=== PATIENT | male | born 1990 | race Two or more races ===

== ENCOUNTER 2016-11-10 23:33 | Emergency (ER) | payer MEDICAID ==
[~2016-11-10] VITALS: Ht 177.8 cm; Wt 58.1 kg
[2016-11-10] MEDS ORDERED: NKM (23:43)
--- NOTE | 2016-11-11 00:29 | Emergency Room Report ---
History of Present Illness General Chief Complaint: General Complaint Source: Patient Present Illness HPI Is a 26-year-old male with no past medical history. He said he broke his ankle about 45 weeks ago was in [place]. He was put in a splint. He had followup with orthopedic who recommended continuing the splint. He took the splint off after 2-3 weeks. And walk on it. Now wants an x-ray to see how is healing. Denies any other complaint. Mild pain. Allergies: Coded Allergies: No Known Allergies (Unverified , 11/10/16) Patient History Past Medical History: see triage record, old chart reviewed Past Surgical History: none Pertinent Family History: none Social History: Denies: smoking Immunizations: other Reviewed Nursing Documentation: PMH: Agreed, PSxH: Agreed Nursing Documentation-PM Past Medical History: No Stated History Review of Systems Eye: Denies: blurred vision, eye pain ENT: Denies: ear pain, nose congestion, throat swelling Respiratory: Denies: cough, shortness of breath Cardiovascular: Denies: chest pain, palpitations Gastrointestinal: Denies: abdominal pain, diarrhea, nausea, vomiting Musculoskeletal: Reports: joint pain, Denies: back pain Skin: Denies: rash Neurological: Denies: headache, numbness Endocrine: Denies: increased thirst, increased urine Hematologic/Lymphatic: Denies: easy bruising All Other Systems: negative except mentioned in HPI Physical Exam Vital Signs Date Time Temp Pulse Resp B/P Pulse Ox O2 Delivery O2 Flow Rate FiO2 11/10/16 23:37 97.9 80 16 110/72 95 Room Air vitals normal Sp02 EP Interpretation: reviewed, normal General Appearance: well appearing, no apparent distress, alert Head: normocephalic, atraumatic Eyes: bilateral eye EOMI, bilateral eye PERRL ENT: hearing grossly normal, normal pharynx Neck: full range of motion, supple, no meningismus Respiratory: chest non-tender, lungs clear, normal breath sounds Cardiovascular #1: regular rate, rhythm, no murmur Gastrointestinal: normal bowel sounds, non tender, no mass, no organomegaly, no bruit, non-distended Musculoskeletal: back normal, other - Right ankle: Mild edema and tenderness over the lateral malleolus. Sensation normal. Dorsalis pedis pulse 2+. Neurologic: alert, oriented x3 Psychiatric: mood/affect normal Skin: warm/dry Medical Decision Making Diagnostic Impression: Primary Impression: Closed right fibular fracture Qualified Codes: S82.821A - Torus fracture of lower end of right fibula, initial encounter for closed fracture ER Course Patient presents with fibular fracture. He took off the splint her ready. His been weightbearing on it. I recommend that he has a splint but he does not want it. He does not want pain medication. Recommend followup with orthopedic Dr. We'll discharge home. Last Vital Signs Date Time Temp Pulse Resp B/P Pulse Ox O2 Delivery O2 Flow Rate FiO2 11/10/16 23:37 97.9 80 16 110/72 95 Room Air Status: improved Disposition: HOME, SELF-CARE Condition: Stable Additional Instructions: wearing your splint. Followup with orthopedic DrBarney in 2-3 days. Return if worse. ARTIE GARCIA M.D. Nov 11, 2016 00:29
[2016-11-11 00:32] VITALS: BP 110/72
--- NOTE | 2016-11-11 08:38 | Diagnostic Imaging Report ---
Indications: ,, Pain Technique: 3 views right ankle Findings: Comparison: None There is an oblique fracture through the distal fibular diaphysis and metaphysis, at and above the level of the ankle joint, minimally displaced. Minimal periosteal callus formation is demonstrated. Surrounding soft tissues are mildly swollen. Tibiotalar joint appears intact. No additional fracture, dislocation, joint space widening, medial soft tissue swelling or other acute change identified. IMPRESSION: Subacute fracture distal right fibula as described, minimal healing
== END 2016-11-11 00:33 | disposition home or self-care (01) ==
LOC: EMR 11-11 00:33
DX: S82.431A Displaced oblique fracture of shaft of right fibula, initial encounter for closed fracture (principal); X58.XXXA Exposure to other specified factors, initial encounter; Y92.89 Other specified places as the place of occurrence of the external cause
CPT/HCPCS: 99283

== ENCOUNTER 2018-01-25 04:04 | Emergency (ER) | payer MEDICAID ==
[~2018-01-25] VITALS: Ht 170.2 cm; Wt 61.2 kg
[~2018-01-25 04:04] MED LIST: NKM
[2018-01-25 04:20] VITALS: BP 117/71
--- NOTE | 2018-01-25 04:34 | Emergency Room Report ---
History of Present Illness General Chief Complaint: Skin Rash/Abscess Source: Patient Present Illness HPI Patient presents with a bump on his gluteal area that he noticed today. Several days ago he had fevers. The family member had MRSA and needed surgical treatment. He also complains about a possible nasal polyp on the left-hand side. The patient denies chest pain, shortness breath, cough, IV drug abuse, self injection with any other medication, immune compromise. The patient had a tetanus shot within the last year. Allergies: Coded Allergies: No Known Allergies (Unverified , 11/10/16) Patient History Past Medical History: see triage record Social History: Reports: smoking Social History Narrative with family Reviewed Nursing Documentation: PMH: Agreed; PSxH: Agreed Review of Systems All Other Systems: negative except mentioned in HPI Physical Exam Vital Signs Date Time Temp Pulse Resp B/P (MAP) Pulse Ox O2 Delivery O2 Flow Rate FiO2 01/25/18 04:14 97.9 78 16 117/71 96 Room Air 97.9 Sp02 EP Interpretation: reviewed, normal General Appearance: well appearing, no apparent distress Head: normocephalic, atraumatic Eyes: bilateral eye normal inspection, bilateral eye PERRL ENT: hearing grossly normal, normal voice, moist mucus membranes Neck: full range of motion, supple Respiratory: no respiratory distress, speaking full sentences Gastrointestinal: normal inspection Genitourinary: no CVA tenderness Musculoskeletal: no calf tenderness Neurologic: alert, normal gait Psychiatric: mood/affect normal Skin: normal color, warm/dry, other - nodule, induration R inner gluteal area, hirsuit Medical Decision Making Diagnostic Impression: Primary Impression: Cellulitis Qualified Codes: L03.317 - Cellulitis of buttock Additional Impression: Alleged nasal polyp ER Course Patient presents with painful nodule in the gluteal area. Differential includes cellulitis, abscess, folliculitis amongst others. This is removed from the rectum and is involving the skin only. There is no fluctuance and therefore oral antibiotics and topical antibiotics are indicated. Also patient will be treated for pain. No labs are indicated at this time. The patient is not toxic. The patient is stable for outpatient observation and treatment Last Vital Signs Date Time Temp Pulse Resp B/P (MAP) Pulse Ox O2 Delivery O2 Flow Rate FiO2 01/25/18 04:50 97.9 72 16 117/71 96 Room Air 208.2 Status: improved Disposition: HOME, SELF-CARE Condition: Improved Scripts Ibuprofen* (MOTRIN*) 600 Mg Tablet 600 MG ORAL Q6H PRN for For Pain, #20 TAB Prov: Dave Zamudio M.D. 01/25/18 Tramadol Hcl* (ULTRAM*) 50 Mg Tablet 50 MG ORAL Q6H PRN for For Pain, #8 TAB 0 Refills Prov: Dave Zamudio M.D. 01/25/18 Bacitracin (Bacitracin) 28.4 Gm Oint...g. 1 APPLIC TOPIC BID, #20 GM Prov: Dave Zamudio M.D. 01/25/18 Trimethoprim/Sulfamethoxazole 160/800* (BACTRIM DS TABLET*) 1 Each Tablet 1 TAB ORAL Q12H, #14 TAB 0 Refills Prov: Dave Zamudio M.D. 01/25/18 Dave Zamudio M.D. Jan 25, 2018 04:34
[2018-01-25] MEDS ORDERED: TRAMADOL HCL50 MG ORAL (04:38)
[2018-01-25] MEDS ORDERED: BACTRIM DS TAB1 EAC1 ORAL (04:38)
[2018-01-25] MEDS ORDERED: BACITRACIN15 GM TOPIC (04:38)
[2018-01-25] MEDS ORDERED: IBUPROFEN600 MG ORAL (04:38)
[2018-01-25] MEDS ORDERED: Bactrim-DS 1 tab ORAL ONE (04:45)
[2018-01-25] MEDS ORDERED: Bacitracin Oint UD TOPIC ONE (04:45)
[2018-01-25 04:50] VITALS: BP 117/71
== END 2018-01-25 04:50 | disposition home or self-care (01) ==
LOC: EMR 04:48
DX: L03.317 Cellulitis of buttock (principal); F17.200 Nicotine dependence, unspecified, uncomplicated
CPT/HCPCS: 99284

== ENCOUNTER 2018-04-09 23:06 | Emergency (ER) | payer MEDICAID ==
[~2018-04-09] VITALS: Ht 170.2 cm; Wt 59.0 kg
[~2018-04-09 23:06] MED LIST changes: +BACITRACIN15 GM TOPIC; +BACTRIM DS TAB1 EAC1 ORAL; +IBUPROFEN600 MG ORAL; +TRAMADOL HCL50 MG ORAL
--- NOTE | 2018-04-09 23:26 | Emergency Room Report ---
History of Present Illness General Chief Complaint: Fever Source: Patient Present Illness HPI Is a 28-year-old male with no past mental history. He present with chief complaint of fever and body pain. Onset yesterday. Also with sore throat. Pain is 10 out of 10. Nothing made it better. Swallowing made it worse. No drooling. No sick contact. Allergies: Coded Allergies: No Known Allergies (Unverified , 11/10/16) Patient History Past Medical History: see triage record, old chart reviewed Past Surgical History: none Pertinent Family History: none Social History: Denies: smoking Immunizations: other Reviewed Nursing Documentation: PMH: Agreed; PSxH: Agreed Review of Systems Constitutional: Reports: malaise, weakness Eye: Denies: eye pain, blurred vision ENT: Reports: throat pain; Denies: ear pain, nose congestion, throat swelling Respiratory: Denies: cough, shortness of breath Cardiovascular: Denies: chest pain, palpitations Gastrointestinal: Denies: abdominal pain, diarrhea, nausea, vomiting Musculoskeletal: Reports: muscle pain; Denies: back pain, joint pain Skin: Denies: rash Neurological: Denies: headache, numbness Endocrine: Denies: increased thirst, increased urine Hematologic/Lymphatic: Denies: easy bruising All Other Systems: negative except mentioned in HPI Physical Exam Vital Signs Date Time Temp Pulse Resp B/P (MAP) Pulse Ox O2 Delivery O2 Flow Rate FiO2 04/09/18 23:10 103.6 111 18 112/69 93 Room Air 103.6 vitals with fever Sp02 EP Interpretation: reviewed, normal General Appearance: well appearing, no apparent distress, alert, other - Ill appearing Head: normocephalic, atraumatic Eyes: bilateral eye PERRL, bilateral eye EOMI ENT: hearing grossly normal, tonsillar swelling, pharyngeal erythema, tonsillar exudate, other - No trismus Neck: full range of motion, supple, no meningismus, other - Adenopathy Respiratory: chest non-tender, lungs clear, normal breath sounds Cardiovascular #1: regular rate, rhythm, no murmur Gastrointestinal: normal bowel sounds, non tender, no mass, no organomegaly, no bruit, non-distended Musculoskeletal: back normal, gait/station normal, normal range of motion Psychiatric: mood/affect normal Skin: warm/dry Medical Decision Making Diagnostic Impression: Primary Impression: Acute infective tonsillitis Qualified Codes: J03.00 - Acute streptococcal tonsillitis, unspecified ER Course Patient presents with fever and tonsillitis. Most likely strep rate no evidence of peritonsillar abscess, meningitis, retropharyngeal abscess or Neil angina. Patient is better now. We'll discharge home. IV antibiotics given here. Steroids given here. Lab Results Impression labs unremarkable Last Vital Signs Date Time Temp Pulse Resp B/P (MAP) Pulse Ox O2 Delivery O2 Flow Rate FiO2 04/09/18 23:10 103.6 111 18 112/69 93 Room Air 103.6 Status: improved Disposition: HOME, SELF-CARE Condition: Stable Scripts Ibuprofen* (MOTRIN*) 600 Mg Tablet 600 MG ORAL THREE TIMES A DAY, #30 TAB 0 Refills Prov: ARTIE GARCIA M.D. 04/10/18 Amoxicillin/Potassium Clav 875-125* (AUGMENTIN 875-125 TABLET*) 1 Each Tablet 1 TAB ORAL TWICE A DAY, #14 TAB Prov: ARTIE GARCIA M.D. 04/10/18 Referrals: [facility],REFERRING (PCP) Additional Instructions: Increase fluids. Salt water gargle. Follow-up with your DrBarney in 2-3 days for recheck. Return if symptom worsen. ARTIE GARCIA M.D. Apr 09, 2018 23:26
[2018-04-09 23:27] VITALS: BP 119/65
[2018-04-09] MEDS ORDERED: Ketorolac 30mg Inj IV ONE (23:30)
[2018-04-09] MEDS ORDERED: Dexamethasone 4mg/ml vial IVP ONE (23:30)
[2018-04-09] MEDS ORDERED: Acetaminophen 500mg (ES) tab ORAL ONE (23:30)
[2018-04-09] MEDS ORDERED: cefTRIAXone 1 GM in NS 55 ML IVPB ONE (23:30)
[2018-04-09 23:44] LABS: HEMATOCRIT 48.6 % (42.0-52.0); HEMOGLOBIN 16.5 G/DL (14.2-18.0); MEAN CORPUSCULAR VOLUME 87 FL (80-99); PLATELET COUNT 204 K/UL (150-450); RED BLOOD COUNT 5.62 M/UL (4.70-6.10); RED CELL DISTRIBUTION WIDTH 11.3 % (11.6-14.8); WHITE BLOOD COUNT 16.3 K/UL (4.8-10.8)
[2018-04-09 23:49] LABS: BASOPHILS % (AUTO) 0.6 % (0.0-2.0); MONOCYTES % (AUTO) 7.8 % (1.0-10.0); NEUTROPHILS % (AUTO) 85.6 % (45.0-75.0)
[2018-04-10 00:01] LABS: ANION GAP 12 mmol/L (5-15); BLOOD UREA NITROGEN 17 mg/dL (7-18); CALCIUM 9.5 MG/DL (8.5-10.1); CARBON DIOXIDE 27 MMOL/L (21-32); CHLORIDE 95 MMOL/L (98-107); CREATININE 1.5 MG/DL (0.55-1.30); POTASSIUM 3.4 MMOL/L (3.5-5.1); SODIUM 134 MMOL/L (136-145)
[2018-04-10] MEDS ORDERED: AUGMENTIN 875-1 EAC1 ORAL (00:16)
[2018-04-10] MEDS ORDERED: IBUPROFEN600 MG ORAL (00:16)
[2018-04-10 00:36] VITALS: BP_SYST 108; BP_SYST 119; BP_DIAS 49; BP_DIAS 65
== END 2018-04-10 00:39 | disposition home or self-care (01) ==
LOC: EMR 23:22
DX: J03.00 Acute streptococcal tonsillitis, unspecified (principal); R07.0 Pain in throat; R50.9 Fever, unspecified
CPT/HCPCS: 36415; 80048; 85025; 96361; 96365; 96375; 99284; J0696; J1100; J1885

== ENCOUNTER 2018-04-29 11:25 | Emergency (ER) | payer MEDICAID ==
[~2018-04-29] VITALS: Ht 170.2 cm; Wt 59.0 kg
[~2018-04-29 11:25] MED LIST changes: +AUGMENTIN 875-1 EAC1 ORAL
[2018-04-29 12:13] VITALS: BP 123/79
[2018-04-29] MEDS ORDERED: BACITRACIN-P28.35 GM TP (12:45)
[2018-04-29] MEDS ORDERED: CEPHALEXIN500 MG ORAL (12:45)
--- NOTE | 2018-04-29 12:45 | Emergency Room Report ---
History of Present Illness General Chief Complaint: Skin Rash/Abscess Source: Patient Present Illness HPI 28-year-old male presents emergency department complaining of 2 pimple-like lesions one on his medial left thigh and one on the left posterior buttock area days. Patient reports that he popped the one on the middle thigh and got some pus out of it. Patient reports the size is becoming smaller however has a hasn' t gone away he is concerned. Patient denies fevers or chills denies history of immunocompromise. Denies lesions elsewhere on the body. Pt. reports 8/10 in severity tenderness. denies erythema, fevers or chills. Allergies: Coded Allergies: No Known Allergies (Unverified , 11/10/16) Patient History Past Medical History: see triage record Past Surgical History: none Pertinent Family History: none Reviewed Nursing Documentation: PMH: Agreed; PSxH: Agreed Nursing Documentation-PMH Past Medical History: No Stated History Review of Systems All Other Systems: negative except mentioned in HPI Physical Exam Vital Signs Date Time Temp Pulse Resp B/P (MAP) Pulse Ox O2 Delivery O2 Flow Rate FiO2 04/29/18 11:59 98.2 71 16 123/79 99 Room Air 98.2 Sp02 EP Interpretation: reviewed, normal General Appearance: no apparent distress, alert, GCS 15, non-toxic Head: normocephalic, atraumatic ENT: hearing grossly normal, normal voice Neck: full range of motion Respiratory: lungs clear, normal breath sounds, no wheezing, speaking full sentences Cardiovascular #1: regular rate, rhythm Musculoskeletal: back normal, gait/station normal, normal range of motion, non- tender Neurologic: alert, oriented x3, responsive, motor strength/tone normal, sensory intact, speech normal, grossly normal Psychiatric: judgement/insight normal Skin: normal color, no rash, warm/dry, well hydrated, other - folliculitis, no palpable fluctuance. one lesion on the left medial thigh, one on the right lower buttock. no erythma or increased temperature to palpation, no other similar lesions, no blisters or vesicles Lymphatic: no adenopathy Medical Decision Making PA Attestation Dr. Cordero is my supervising Physician whom patient management has been discussed with. Diagnostic Impression: Primary Impression: Folliculitis ER Course 28-year-old male presents emergency department complaining of 2 pimple-like lesions one on his medial left thigh and one on the left posterior buttock area days. Patient reports that he popped the one on the middle thigh and got some pus out of it. Patient reports the size is becoming smaller however has a hasn' t gone away he is concerned. Patient denies fevers or chills denies history of immunocompromise. Denies lesions elsewhere on the body. Ddx considered but are not limited to cellulitis, abscess, cystic acne, necrotizing fasciitis, insect bite. folliculitis. Vital signs: are WNL, pt. is afebrile H&PE are most consistent with folliculitis, no palpable fluctuance. ORDERS: none required at this time, the diagnosis is clinical ED INTERVENTIONS: - Pt. given care instruction. d/w pt. no need to I & D at this time as the size is very small and no obvious fluctuance. DISCHARGE: At this time pt. is stable for d/c to home. Will provide printed patient care instructions, and any necessary prescriptions. Care plan and follow up instructions have been discussed with the patient prior to discharge. Last Vital Signs Date Time Temp Pulse Resp B/P (MAP) Pulse Ox O2 Delivery O2 Flow Rate FiO2 04/29/18 12:13 98.2 78 16 123/79 99 Room Air 98.2 Disposition: HOME, SELF-CARE Condition: Stable Scripts Cephalexin* (KEFLEX*) 500 Mg Capsule 500 MG ORAL EVERY 12 HOURS for 7 Days, #14 CAP 0 Refills Prov: Nila Hart 04/29/18 Bacitracin/Polymyxin B Sulfate (BACITRACIN-POLYMYXIN OINTMENT) 28.35 Gm Oint...g. 1 APPLIC TP BID, #22 GM Prov: Nila Hart 04/29/18 Patient Instructions: Folliculitis Additional Instructions: Take medications as directed. Follow up with a Primary Care Provider in 3-5 days, even if your symptoms have resolved. --Please review list of primary care clinics, if you do not already have a primary care provider Return sooner to ED if new symptoms occur, or current symptoms become worse. - Please note that this Emergency Department Report was dictated using [employer] business [employer] technology software, occasionally this can lead to erroneous entry secondary to interpretation by the dictation equipment. Nila Hart Apr 29, 2018 12:45
[2018-04-29 12:51] VITALS: BP 118/74
== END 2018-04-29 12:52 | disposition home or self-care (01) ==
LOC: EMR 12:45
DX: L73.9 Follicular disorder, unspecified (principal)
CPT/HCPCS: 99283

== ENCOUNTER 2018-06-21 02:25 | Emergency (ER) | payer MEDICAID ==
[~2018-06-21] VITALS: Ht 170.2 cm; Wt 65.3 kg
[~2018-06-21 02:25] MED LIST changes: +BACITRACIN-P28.35 GM TP; +CEPHALEXIN500 MG ORAL
[2018-06-21 03:02] VITALS: BP 123/85
[2018-06-21 03:05] VITALS: BP 125/87
[2018-06-21 03:07] VITALS: BP 122/73
[2018-06-21] MEDS ORDERED: CLARITIN-D 121 EAC1 ORAL (03:07)
[2018-06-21] MEDS ORDERED: ACULAR5 ML BOTH EYES (03:07)
--- NOTE | 2018-06-21 03:07 | Emergency Room Report ---
History of Present Illness General Chief Complaint: Medication Refill Source: Patient, Medical Record Present Illness HPI This a 28-year-old male with no past medical history. He presents with chief complaint of itchy eyes, stuffy nose and stuffy ear. He was prescribed antibiotic eyedrops and he nearly uses at all in the last couple days. No fever chills but no nausea no vomiting. Does have sneezing and stuffy nose. Also with a cold sore. He came in wanting eyedrops, eardrops and nose drop. Allergies: Coded Allergies: No Known Allergies (Unverified , 06/21/18) Patient History Past Medical History: see triage record, old chart reviewed Past Surgical History: none Pertinent Family History: none Social History: Denies: smoking Immunizations: other Reviewed Nursing Documentation: PMH: Agreed; PSxH: Agreed Nursing Documentation-PMH Past Medical History: No History, Except For Review of Systems Eye: Reports: eye pain; Denies: blurred vision ENT: Reports: nose congestion; Denies: ear pain, throat swelling Respiratory: Denies: cough, shortness of breath Cardiovascular: Denies: chest pain, palpitations Gastrointestinal: Denies: abdominal pain, diarrhea, nausea, vomiting Musculoskeletal: Denies: back pain, joint pain Skin: Denies: rash Neurological: Denies: headache, numbness Endocrine: Denies: increased thirst, increased urine Hematologic/Lymphatic: Denies: easy bruising All Other Systems: negative except mentioned in HPI Physical Exam Vital Signs Date Time Temp Pulse Resp B/P (MAP) Pulse Ox O2 Delivery O2 Flow Rate FiO2 06/21/18 02:43 97.9 86 18 123/85 99 Room Air vitals normal Sp02 EP Interpretation: reviewed, normal General Appearance: well appearing, no apparent distress, alert Head: normocephalic, atraumatic Eyes: bilateral eye PERRL, bilateral eye EOMI ENT: hearing grossly normal, normal pharynx, other - Cold sore on left lower lip Neck: full range of motion, supple, no meningismus Respiratory: chest non-tender, lungs clear, normal breath sounds Cardiovascular #1: regular rate, rhythm, no murmur Gastrointestinal: normal bowel sounds, non tender, no mass, no organomegaly, no bruit, non-distended Musculoskeletal: back normal, gait/station normal, normal range of motion Psychiatric: mood/affect normal Skin: warm/dry Medical Decision Making Diagnostic Impression: Primary Impression: Allergic conjunctivitis and rhinitis Qualified Codes: H10.13 - Acute atopic conjunctivitis, bilateral; J30.9 - Allergic rhinitis, unspecified ER Course Patient presents with allergic conjunctivitis and rhinitis. His could also be secondary to viral illness. I see no evidence of a bacterial illness. She no abnormalities ears to warrant eardrops. We'll discharge home. Last Vital Signs Date Time Temp Pulse Resp B/P (MAP) Pulse Ox O2 Delivery O2 Flow Rate FiO2 06/21/18 02:43 97.9 86 18 123/85 99 Room Air Status: unchanged Disposition: HOME, SELF-CARE Condition: Stable Scripts Loratadine/Pseudoephedrine (CLARITIN-D 12 HOUR TABLET) 1 Each Tab.er.12h 1 TAB ORAL EVERY 12 HOURS, #30 TAB Prov: Adarsh Martinez MD 06/21/18 Ketorolac Tromethamine (ACULAR) 5 Ml Drops 1 DROP BOTH EYES FOUR TIMES A DAY, #10 ML Prov: Adarsh Martinez MD 06/21/18 Referrals: [facility],REFERR[facility] (PCP) Additional Instructions: Follow-up your doctor in 7 days. Return if worse. Adarsh Martinez MD Jun 21, 2018 03:07
== END 2018-06-21 03:10 | disposition home or self-care (01) ==
LOC: EMR 02:52
DX: H10.13 Acute atopic conjunctivitis, bilateral (principal); J30.9 Allergic rhinitis, unspecified
CPT/HCPCS: 99283

== ENCOUNTER 2020-02-20 03:01 | Emergency (ER) | payer MEDICAID, OTHER ==
[~2020-02-20] VITALS: Ht 170.2 cm; Wt 70.3 kg
[~2020-02-20 03:01] MED LIST changes: +ACULAR5 ML BOTH EYES; +CLARITIN-D 121 EAC1 ORAL
--- NOTE | 2020-02-20 03:21 | Emergency Room Report ---
History of Present Illness General Chief Complaint: Wound Recheck/Suture Removal Present Illness HPI Patient is a 29-year-old male who presents for suture removal. He denies any current complaints. Had suture removal patient had cyst removal to the left side of his neck. Denies any current issues with that. States this is been healing well. Stitches were placed 10 days prior to arrival. Allergies: Coded Allergies: No Known Allergies (Unverified , 06/21/18) COVID-19 Screening Contact w/high risk pt: No Experienced COVID-19 symptoms?: No COVID-19 Testing performed ON SITE MANAGER: No Patient History Reviewed Nursing Documentation: PMH: Agreed; PSxH: Agreed Review of Systems All Other Systems: negative except mentioned in HPI Physical Exam Vital Signs Date Time Temp Pulse Resp B/P (MAP) Pulse Ox O2 Delivery O2 Flow Rate FiO2 02/20/20 03:06 99.0 87 19 129/88 (102) 99 Room Air General Appearance: well appearing, no apparent distress, alert, GCS 15 Head: normocephalic, atraumatic ENT: hearing grossly normal, normal voice Neck: full range of motion, supple, other - Well-healed sutures Respiratory: no respiratory distress, speaking full sentences Cardiovascular #1: normal peripheral pulses Gastrointestinal: normal inspection Musculoskeletal: normal inspection, no calf tenderness Neurologic: alert, motor strength/tone normal, oriented x3, normal gait Psychiatric: mood/affect normal Skin: no rash Medical Decision Making Diagnostic Impression: Primary Impression: Encounter for removal of sutures ER Course Patient presented for suture removal. Patient's sutures appear to be well- healed. Sutures were removed without incident. Patient tolerated this well. Patient was advised to follow-up with his primary care physician as previously directed. He is advised to return if worse. This medical record is generated with [employer] content editor software. There may be some content editor discrepancies related to use of this software Last Vital Signs Date Time Temp Pulse Resp B/P (MAP) Pulse Ox O2 Delivery O2 Flow Rate FiO2 02/20/20 03:06 99.0 87 19 129/88 (102) 99 Room Air Status: improved Disposition: HOME, SELF-CARE Condition: Stable Patient Instructions: Suture Removal, Care After Kenton Escobar MD Feb 20, 2020 03:21
[2020-02-20 03:25] VITALS: BP 129/88
== END 2020-02-20 03:25 | disposition home or self-care (01) ==
LOC: EMR 03:15
DX: Z48.02 Encounter for removal of sutures (principal)
CPT/HCPCS: 99281